=== PATIENT | male | born 1965 | race African-American/Black ===

== ENCOUNTER 2016-10-20 09:06 | Emergency (ER) ==
--- NOTE | 2016-10-20 09:40 | EKG Report ---
Test Performed on : 10/20/2016 09:32:00 AM Test Reason : cp Blood Pressure : / mmHG Vent. Rate : 086 BPM Atrial Rate : 086 BPM P-R Int : 168 ms QRS Dur : 110 ms QT Int : 382 ms P-R-T Axes : 037 013 031 degrees QTc Int : 457 ms Normal sinus rhythm. Incomplete right bundle branch block Borderline ECG No previous ECGs available Unconfirmed Result
[2016-10-20] MEDS ORDERED: ASPIRIN PO STA (09:51)
--- NOTE | 2016-10-20 10:01 | PROVIDER DOCUMENTATION ---
HPI-General Adult - General Source: patient - History of Present Illness -Gen Adult Nature of Presenting Problems: Reports hx of Neuropathy,DM,Htn states was at Rehab this morning BP was 165/105 sent to er for evaluation. Pt Denies cp,abd pain,blurry vision,FERRELL. Reports was nausea yesterday wasn't able to eat anything until last night at which point " I was wired all night." Took lisinopril at 0200 this morning. Location of Pain/Injury: reports: none Quality of Pain: reports: none Severity: reports: moderate Onset/Duration: reports: this morning Similar Symptoms Previously?: No Recently seen or treated by another doctor?: No <Virginia Novak - Last Filed: 10/20/16 10:46> <Queta Farfan - Last Filed: 10/20/16 11:59> - General Chief Complaint: Anxiety Stated Complaint: ANXIETY Time Seen by Provider: 10/20/16 10:41 Allergies/Adverse Reactions: Patient Allergies Allergy/AdvReac Type Severity Reaction Status Date / Time No Known Allergies Allergy Verified 08/26/12 09:57 Home Medications: Glimepiride 4 mg PO BID 08/26/12 Hydrocodone Bit/Acetaminophen [Hydrocodon-Acetaminophen 5-500] 1 each PO Q4-6H PRN PRN 08/26/12 Lisinopril [Zestril] 10 mg PO DAILY 08/26/12 Metformin [Glucophage] 1,000 mg PO BID 08/26/12 Review of Systems - Adult - REVIEW OF SYSTEMS - ADULT Constitutional: reports: other (hypertension). denies: chills, fever, fatique Eyes: reports: no symptoms reported Ears, Nose, Mouth & Throat: denies: ear pain, sinus problem, throat pain Cardiovascular: reports: no symptoms reported Respiratory: reports: no symptoms reported Gastrointestinal: reports: no symptoms reported Genitourinary: reports: no symptoms reported Musculoskeletal: reports: no symptoms reported Integumentary: reports: no symptoms reported Neurological: reports: no symptoms reported Psychiatric: reports: anxiety. denies: depression, emotional problems, suicidal thoughts Endocrine: reports: no symptoms reported Hematologic/Lymphatic: reports: no symptoms reported Allergic/Immunologic: reports: no symptoms reported All Other Systems: Reviewed and Negative <Virginia Novak - Last Filed: 10/20/16 10:46> Past History - Adult - PAST MEDICAL HISTORY-ADULT Review of Records: reports: Nursing Assessment Review Major Childhood Illnesses: reports: denies history Cardiovascular: reports: HTN Neurological: reports: other (neuropathy) Endocrine/Immune: reports: Diabetes - PRIOR SURGERIES/PROCEDURES Surgical/Procedure History: reports: other (scrotal cyst) - IMMUNIZATION STATUS Childhood Immunizations: See Nurse Assessment Flu Vaccine: See Nurse Assessment - SOCIAL HISTORY Smoking: denies Substance Use: none/never <Virginia Novak - Last Filed: 10/20/16 10:46> Physical Exam-General - PHYSICAL EXAM-ADULT Initial Vital Signs Reviewed: Yes (BP on exam 130/95) - CONSTITUTIONAL General Appearance: appears well, alert, no apparent distress, anxious - EYES Eyes: PERRL/EOMI, other (eyes are blood shot) - HEAD, EARS, NOSE, MOUTH & THROAT HENMT: normocephalic/atraumatic, moist mucous membranes, normal ENT inspection - NECK Neck: non-tender, full range of motion, supple, normal inspection - RESPIRATORY Respiratory: chest non-tender, lungs clear, normal breath sounds - CARDIOVASCULAR Cardiovascular: normal peripheral pulses, regular rate, rhythm, no edema - GASTROINTESTINAL (ABDOMEN) Abdominal Exam: normal bowel sounds, non tender, soft, no organomegaly, no pulsatile mass - LYMPHATIC Lymphatic: no adenopathy - MUSCULOSKELETAL Back Exam: normal inspection, no CVA tenderness, no vertebral tenderness Extremity: normal range of motion, non-tender, normal gait - SKIN Integumentary: normal color, normal turgor, warm/dry - NEUROLOGIC Neurologic: grossly normal, no motor/sensory deficits - PSYCHIATRIC Psych/Mental Status: normal thought content, normal thought process, oriented x 3, anxious <Virginia Novak - Last Filed: 10/20/16 10:46> Progress - PLAN OF CARE/RESULTS Progress/Plan/Lab Results: Orders Category Date Time Status CHEST-2 VIEWS [RAD] Stat Exams 10/20/16 09:52 Taken CBC WITH ELECTRONIC DIFF [HEME] Stat Lab 10/20/16 10:28 Results CK PROFILE [SP CHEM] Stat Lab 10/20/16 10:28 Received COMPREHENSIVE METABOLIC PANEL [CHEM] Stat Lab 10/20/16 10:28 Received MAGNESIUM [CHEM] Stat Lab 10/20/16 10:28 Received PRO B-NATRIURETIC PEPTIDE Stat Lab 10/20/16 10:28 Received PROTIME WITH INR PL [COAG] Stat Lab 10/20/16 10:[address] [COAG] Stat Lab 10/20/16 10:28 Received TROPONIN T Stat Lab 10/20/16 10:[address] W/POSS RFLX CULT [URINALYSIS] Stat Lab 10/20/16 10:30 Ordered URINE DRUG SCREEN PL Stat Lab 10/20/16 10:30 Ordered Aspirin Med 10/20/16 09:51 Discontinued 325 mg PO STAT STA EKG [EKG] Stat Ther 10/20/16 09:25 Draft Vital Signs - 24 hr 10/20/16 09:19 Temperature 98 F Pulse Rate 92 H Respiratory 18 Rate Blood Pressure 161/104 O2 Sat by Pulse 100 Oximetry - EKG 1 Time of EKG reading by physician:: 09:32 EKG Read and Signed by:: Timothy Cortes EKG Interpretation (*Must complete 3 of following elements*): Abnormal Rate: 86 Rhythm: nsr [place]: normal QRS: RBB (incomplete RBBB) <Virginia Novak - Last Filed: 10/20/16 10:46> - PLAN OF CARE/RESULTS Progress/Plan/Lab Results: Vital Signs Temp Pulse Resp BP Pulse Ox 10/20/16 09:19 98 F 92 H 18 161/104 100 No Known Allergies Allergy (Verified 08/26/12 09:57) Acetaminophen with Codeine [Tylenol #3] 1 each PO Q6H PRN PRN #15 tablet Amoxicillin [Amoxil] 500 mg PO TID PRN PRN #21 capsule 08/26/12 Glimepiride 4 mg PO BID 08/26/12 Hydrocodone Bit/Acetaminophen [Hydrocodon-Acetaminophen 5-500] 1 each PO Q4-6H PRN PRN 08/26/12 Lisinopril [Zestril] 10 mg PO DAILY 08/26/12 Metformin [Glucophage] 1,000 mg PO BID 08/26/12 Promethazine [Phenergan] 25 mg PO Q6H PRN PRN #15 tablet 08/26/12 Laboratory 10/20/16 10/20/16 10/20/16 10:34 10:34 10:28 WBC RBC Hgb Hct MCV MCH MCHC RDW Std Deviation Plt Count MPV Immature Gran % (Auto) Neut % (Auto) Lymph % (Auto) [place] % (Auto) Eos % (Auto) Baso % (Auto) Immature Gran # (Auto) Neut # (Auto) Lymph # (Auto) [place] # (Auto) Eos # (Auto) Baso # (Auto) PT INR APTT (Factor Assay) Sodium Potassium Chloride Carbon Dioxide Anion Gap BUN Creatinine Estimated GFR/1.73 m2 BUN/Creatinine Ratio Glucose Calculated Osmolality Calcium Magnesium Total Bilirubin AST ALT Alkaline Phosphatase Creatine Kinase Troponin T [id number]-[id number] Pept Total Protein Albumin Globulin Albumin/Globulin Ratio Urine Source CLEAN CATCH Urine Color YELLOW Urine Clarity CLEAR Urine pH 6.5 Ur Specific [place] 1.010 Urine Protein TRACE A Urine Ketones 2+(Moderate) A Urine Blood NEGATIVE Urine Nitrite NEGATIVE Urine Bilirubin NEGATIVE Urine Urobilinogen NORMAL Urine Microscopic RBC Not Reportable Urine WBC NEGATIVE Urine Microscopic WBC <10 Ur Epithelial Cells <10 Urine Bacteria 1+ Urine Glucose 3+(500 mg/dL) A Urine Opiates Screen NONE DETECTED Ur Oxycodone Screen NONE DETECTED Urine Methadone Screen NONE DETECTED Ur Barbituates Screen NONE DETECTED Ur Tricyclics Screen NONE DETECTED Ur Phencyclidine Scrn NONE DETECTED Ur Amphetamines Screen NONE DETECTED U Methamphetamines Scrn NONE DETECTED Urine MDMA Screen NONE DETECTED U Benzodiazepines Scrn NONE DETECTED Urine Cocaine Screen NONE DETECTED U Cannabinoids Screen NONE DETECTED Acetone Level NEGATIVE 10/20/16 10/20/16 10/20/16 10:28 10:28 10:28 WBC 5.12 RBC 5.80 Hgb 14.9 Hct 46.0 MCV 79.3 L MCH 25.7 L MCHC 32.4 L RDW Std Deviation 12.7 Plt Count 198 MPV 9.6 Immature Gran % (Auto) 0.0 Neut % (Auto) 47.2 Lymph % (Auto) 42.6 [place] % (Auto) 8.2 Eos % (Auto) 1.6 Baso % (Auto) 0.4 Immature Gran # (Auto) 0.00 Neut # (Auto) 2.42 Lymph # (Auto) 2.18 [place] # (Auto) 0.42 Eos # (Auto) 0.08 Baso # (Auto) 0.02 PT 13.4 INR 0.99 APTT (Factor Assay) 27.1 Sodium Potassium Chloride Carbon Dioxide Anion Gap BUN Creatinine Estimated GFR/1.73 m2 BUN/Creatinine Ratio Glucose Calculated Osmolality Calcium Magnesium Total Bilirubin AST ALT Alkaline Phosphatase Creatine Kinase Troponin T [id number]-[id number]-Gmlowmuhsrs Pept 22 Total Protein Albumin Globulin Albumin/Globulin Ratio Urine Source Urine Color Urine Clarity Urine pH Ur Specific [place] Urine Protein Urine Ketones Urine Blood Urine Nitrite Urine Bilirubin Urine Urobilinogen Urine Microscopic RBC Urine WBC Urine Microscopic WBC Ur Epithelial Cells Urine Bacteria Urine Glucose Urine Opiates Screen Ur Oxycodone Screen Urine Methadone Screen Ur Barbituates Screen Ur Tricyclics Screen Ur Phencyclidine Scrn Ur Amphetamines Screen U Methamphetamines Scrn Urine MDMA Screen U Benzodiazepines Scrn Urine Cocaine Screen U Cannabinoids Screen Acetone Level 10/20/16 10/20/16 10:28 10:28 WBC RBC Hgb Hct MCV MCH MCHC RDW Std Deviation Plt Count MPV Immature Gran % (Auto) Neut % (Auto) Lymph % (Auto) [place] % (Auto) Eos % (Auto) Baso % (Auto) Immature Gran # (Auto) Neut # (Auto) Lymph # (Auto) [place] # (Auto) Eos # (Auto) Baso # (Auto) PT INR APTT (Factor Assay) Sodium 131 L Potassium 4.0 Chloride 95 L Carbon Dioxide 26 Anion Gap 10 BUN 11 Creatinine 0.8 Estimated GFR/1.73 m2 > 60 BUN/Creatinine Ratio 14 Glucose 370 H Calculated Osmolality 277 Calcium 9.8 Magnesium 2.0 Total Bilirubin 0.90 AST 25 ALT 40 Alkaline Phosphatase 87 Creatine Kinase 113 Troponin T < 0.010 [id number]-[id number]-Ocvvkcsfwnq Pept Total Protein 7.8 Albumin 4.3 Globulin 4.0 Albumin/Globulin Ratio 1.0 Urine Source Urine Color Urine Clarity Urine pH Ur Specific [place] Urine Protein Urine Ketones Urine Blood Urine Nitrite Urine Bilirubin Urine Urobilinogen Urine Microscopic RBC Urine WBC Urine Microscopic WBC Ur Epithelial Cells Urine Bacteria Urine Glucose Urine Opiates Screen Ur Oxycodone Screen Urine Methadone Screen Ur Barbituates Screen Ur Tricyclics Screen Ur Phencyclidine Scrn Ur Amphetamines Screen U Methamphetamines Scrn Urine MDMA Screen U Benzodiazepines Scrn Urine Cocaine Screen U Cannabinoids Screen Acetone Level Orders Category Date Time Status Saline Loc NOW Care 10/20/16 11:25 Active CHEST-2 VIEWS [RAD] Stat Exams 10/20/16 09:52 Draft ACETONE SERUM [CHEM] Stat Lab 10/20/16 10:28 Completed CBC WITH ELECTRONIC DIFF [HEME] Stat Lab 10/20/16 10:28 Completed CK PROFILE [SP CHEM] Stat Lab 10/20/16 10:28 Completed COMPREHENSIVE METABOLIC PANEL [CHEM] Stat Lab 10/20/16 10:28 Completed MAGNESIUM [CHEM] Stat Lab 10/20/16 10:28 Completed PRO B-NATRIURETIC PEPTIDE Stat Lab 10/20/16 10:28 Completed [address]IME WITH INR PL [COAG] Stat Lab 10/20/16 10:[address] [COAG] Stat Lab 10/20/16 10:28 Completed TROPONIN T Stat Lab 10/20/16 10:[address] W/POSS RFLX CULT [URINALYSIS] Stat Lab 10/20/16 10:34 Completed URINE DRUG SCREEN PL Stat Lab 10/20/16 10:34 Completed 0.9% Sodium Chloride Inj [Ns] 1,000 ml Med 10/20/16 11:25 Active IV 999 mls/hr Aspirin Med 10/20/16 09:51 Discontinued 325 mg PO STAT STA EKG [EKG] Stat Ther 10/20/16 09:25 Draft Orders Category Date Time Status Saline Loc NOW Care 10/20/16 11:25 Inactive CHEST-2 VIEWS [RAD] Stat Exams 10/20/16 09:52 Draft ACETONE SERUM [CHEM] Stat Lab 10/20/16 10:28 Completed CBC WITH ELECTRONIC DIFF [HEME] Stat Lab 10/20/16 10:28 Completed CK PROFILE [SP CHEM] Stat Lab 10/20/16 10:28 Completed COMPREHENSIVE METABOLIC PANEL [CHEM] Stat Lab 10/20/16 10:28 Completed MAGNESIUM [CHEM] Stat Lab 10/20/16 10:28 Completed PRO B-NATRIURETIC PEPTIDE Stat Lab 10/20/16 10:28 Completed [address]IME WITH INR PL [COAG] Stat Lab 10/20/16 10:[address] [COAG] Stat Lab 10/20/16 10:28 Completed TROPONIN T Stat Lab 10/20/16 10:[address] W/POSS RFLX CULT [URINALYSIS] Stat Lab 10/20/16 10:34 Completed URINE DRUG SCREEN PL Stat Lab 10/20/16 10:34 Completed 0.9% Sodium Chloride Inj [Ns] 1,000 ml Med 10/20/16 11:25 Stop Req IV 999 mls/hr Aspirin Med 10/20/16 09:51 Discontinued 325 mg PO STAT STA Clonidine [Catapres] Med 10/20/16 11:58 Once 0.1 mg PO NOW ONE Glimepiride [Amaryl] Med 10/20/16 11:58 Once 4 mg PO NOW ONE EKG [EKG] Stat Ther 10/20/16 09:25 Draft <Queta Farfan - Last Filed: 10/20/16 11:59> Departure <Virginia Novak - Last Filed: 10/20/16 10:46> - Departure Time of Disposition Order: 11:55 Certified Medical Emergency: Emergent <Queta Farfan - Last Filed: 10/20/16 11:59> - Departure DIAGNOSIS: Anxiety Hyperglycemia due to type 2 diabetes mellitus Qualifiers: Diabetes mellitus nursing home insulin use: with nursing home use Qualified Code(s): E11.65 - Type 2 diabetes mellitus with hyperglycemia Disposition: HOME 01 Condition: Stable Additional Instructions: Follow up with your primary care physician ED Follow Up Instructions: You have been treated by a care provider in the Emergency Department. These instructions are being provided to you so you can have an understanding of how to care for yourself upon discharge. Upon discharge from the Emergency Department, you are responsible for making arrangements for follow-up care by a physician of your choice. Take all prescribed medications as directed. Return to the Emergency Department immediately for any new or worsening symptoms. You may call the Physician Referral phone number at [phone] to obtain a list of Physicians who are taking new patients. Prescriptions: Amlodipine Besylate [Norvasc] 5 mg PO DAILY #30 tablet Referrals: Aline Barnett MD [STAFF PHYSICIAN] - None,PCP [Primary Care Provider] - Forms: Return to School/Parent Work Instructions: Type 2 Diabetes Mellitus, Adult, Panic Attacks, [place], Amlodipine tablets Attestation - Scribe Verification/Attestation Scribe:: Virginia Novak Acting as Scribe for:: Queta Farfan Scribe documention review:: This chart was documented by a scribe and accurately reflects the service the provider performed and the decisions made by the provider. <Virginia Novak - Last Filed: 10/20/16 10:46> - Physician/ Mid-level Attestation Patient care was provided by Mid-level provider (NEUROSURGICAL NURSE PRACTITIONER/PA):: Yes Mid-level provider:: Queta Farfan Mid-level documentation review:: The Mid-level provider documentation, treatment plan and medical decision making was reviewed by the physician who agrees with all treatment and medical decision making by the MLP. <Queta Farfan - Last Filed: 10/20/16 11:59> Physician Attestation
[2016-10-20 10:45] LABS: MANUAL DIFF NEEDED? NO
[2016-10-20 10:54] LABS: URINE CULTURE PL NEEDED? NO; URINE SOURCE CLEAN CATCH
[2016-10-20 10:57] LABS: BILIRUBIN URINE NEGATIVE (NEGATIVE); BLOOD URINE NEGATIVE (NEGATIVE); CLARITY CLEAR (CLEAR); COLOR YELLOW; LEUKOCYTES URINE NEGATIVE (NEGATIVE); NITRITE URINE NEGATIVE (NEGATIVE); PH URINE 6.5; PROTEIN URINE TRACE mg/dL (NEGATIVE); UROBILINOGEN URINE NORMAL
[2016-10-20 11:03] LABS: BASO% 0.4 % (0.0-0.8); EOS# 0.08 X1000 (0.0-0.7); EOS% 1.6 % (0.0-10.0); HEMOGLOBIN 14.9 g/dL (14.0-18.0); LYMPH# 2.18 X1000 (1.2-3.4); LYMPH% 42.6 % (20.5-51.1); MCH 25.7 PG (27-31); MCHC 32.4 g/dL (33-37); MCV 79.3 FL (81-99); MONO# 0.42 X1000 (0.11-0.59); MONO% 8.2 % (1.7-9.3); MPV 9.6 FL (7.4-10.4); NEUT% 47.2 % (42.2-75.2); PLT 198 X1000 (130-400)
[2016-10-20 11:04] LABS: UR AMPHETAMINES QUAL NONE DETECTED (NONE DETECT); UR BARBITUATES QUAL NONE DETECTED (NONE DETECT); UR BENZODIAZEPIN QUAL NONE DETECTED (NONE DETECT); UR CANNABINOIDS QUAL NONE DETECTED (NONE DETECT); UR COCAINE QUAL NONE DETECTED (NONE DETECT); UR MDMA QUAL NONE DETECTED (NONE DETECT); UR METHADONE QUAL NONE DETECTED (NONE DETECT); UR METHAMPHETAMINE QUAL NONE DETECTED (NONE DETECT); UR OPIATES QUAL NONE DETECTED (NONE DETECT); UR OXYCODONE QUAL NONE DETECTED (NONE DETECT); UR PCP QUAL NONE DETECTED (NONE DETECT); UR TCA QUAL NONE DETECTED (NONE DETECT)
[2016-10-20 11:08] LABS: AGAP 10; ALBUMIN 4.3 g/dL (3.5-5.0); ALKALINE PHOSPHATASE 87 U/L (32-122); BUN 11 mg/dL (8-22); CALCIUM 9.8 mg/dL (8.8-10.2); CHLORIDE 95 mmol/L (98-107); CK PROFILE 113 U/L (24-204); COSMO 277; GOT 25 U/L (10-34); GPT 40 U/L (10-44); SODIUM 131 mmol/L (136-145); TCO2 26 mmol/L (25-35); TOTAL PROTEIN 7.8 g/dL (6.3-8.3)
[2016-10-20] MEDS ORDERED: NS 1,000 ML IV ONE (11:25)
[2016-10-20 11:27] LABS: INR 0.99 (0.86-1.15); PROTIME 13.4 Seconds (12.1-15.5)
[2016-10-20 11:28] LABS: PTT PL 27.1 Seconds (22.6-43.9)
--- NOTE | 2016-10-20 11:32 | Diag Imaging Result Document ---
PROCEDURE NAME: CHEST-2 VIEWS - 10/20/2016 CHEST, TWO VIEWS: INDICATION: Chest pain. FINDINGS: There is elevation of the right hemidiaphragm versus right subpulmonic effusion. The cardiomediastinal silhouette is within normal limits. The pulmonary vasculature is not congested. There are no acute infiltrates. No pneumothorax is identified. IMPRESSION: Elevated right hemidiaphragm versus subpulmonic effusion. Right lateral decubitus view of the chest could be obtained if indicated clinically.
[2016-10-20 11:43] LABS: URINE EPITHELIAL CELLS <10 /HPF (<10); URINE WBC <10 /HPF (<10)
[2016-10-20] MEDS ORDERED: AMARYL PO ONE ×2 (11:58→12:15)
[2016-10-20] MEDS ORDERED: CATAPRES PO ONE (11:58)
[2016-10-20 12:46] VITALS: BP 149/89
== END 2016-10-20 12:46 | disposition home or self-care (01) ==
LOC: P.ED 09:06
DX: E11.65 Type 2 diabetes mellitus with hyperglycemia (principal); F41.9 Anxiety disorder, unspecified; E11.40 Type 2 diabetes mellitus with diabetic neuropathy, unspecified; I10 Essential (primary) hypertension; R94.31 Abnormal electrocardiogram [ECG] [EKG]; Z79.899 Other long term (current) drug therapy
CPT/HCPCS: 71020; 80053; 81001; 82009; 82550; 82948; 83735; 83880; 84484; 85025; 85610; 85730; 93005; 99284; J7030